=== PATIENT | male | born 1960 | race Caucasian/White ===

== ENCOUNTER → 2016-12-13 | Outpatient (CLI) | payer BC ==
[2016-12-13 09:53] LABS: CHLORIDE,CL 106 mmol/L (98-110); SODIUM,NA 140 mmol/L (136-146)
== END | disposition home or self-care (01) ==
LOC: MW.CHOBGYN 08:23
PROVIDERS: ATTEND Nurse Practitioner Family
DX: Z00.00 Encounter for general adult medical examination without abnormal findings (principal); E78.00 Pure hypercholesterolemia, unspecified
CPT/HCPCS: 36415; 80053; 80061; G0103

== ENCOUNTER 2017-11-01 12:14 | Emergency (ER) | payer BC ==
--- NOTE | 2017-11-01 12:20 | EDM.PDOC ---
ED HPI GENERAL MEDICAL PROBLEM - General Chief Complaint: General Stated Complaint: CONGESTED Time Seen by Provider: 11/01/17 12:19 Source of Information: Reports: Patient - History of Present Illness INITIAL COMMENTS - FREE TEXT/NARRATIVE: HISTORY AND PHYSICAL: History of present illness: [Patient presents with cough and wheeze after grinding on a manifold, he did have a ventilated shop however the rust plume that ensued caused him to cough he became wheezy and short of breath throughout the night he is in no distress no fever nausea vomiting chills sweats no chest pain headache dizziness or palpitation no bowel or urine symptoms ] Review of systems: As per history of present illness and below otherwise all systems reviewed and negative. Past medical history: As per history of present illness and as reviewed below otherwise noncontributory. Surgical history: As per history of present illness and as reviewed below otherwise noncontributory. Social history: No reported history of drug or alcohol abuse. Family history: As per history of present illness and as reviewed below otherwise noncontributory. Physical exam: HEENT: Atraumatic, normocephalic, pupils reactive, negative for conjunctival pallor or scleral icterus, mucous membranes moist, throat clear, neck supple, nontender, trachea midline. Lungs: Clear to auscultation, breath sounds equal bilaterally, chest nontender. Post DuoNeb prior he did have an expiratory wheeze on the left Heart: S1S2, regular, negative for clicks, rubs, or JVD. Abdomen: Soft, nondistended, nontender. Negative for masses or hepatosplenomegaly. Negative for costovertebral tenderness. Pelvis: Stable nontender. Genitourinary: Deferred. Rectal: Deferred. Extremities: Atraumatic, negative for cords or calf pain. Neurovascular unremarkable. Neuro: Awake, alert, oriented. Cranial nerves II through XII unremarkable. Cerebellum unremarkable. Motor and sensory unremarkable throughout. Exam nonfocal. Diagnostics: [Strep/fluid Chest 2 views ] Therapeutics: [DuoNeb now and prescription patient has compressor at home Solu-Medrol 125 mg IM zpak HFA Medrol Dosepak ] Impression: [Pneumonitis/bronchitis] Definitive disposition and diagnosis as appropriate pending reevaluation and review of above. Chest Pain Score (Numeric/FACES): 8 - Related Data Allergies Allergy/AdvReac Type Severity Reaction Status Date / Time Penicillins Allergy Unknown Cannot Verified 01/29/15 16:54 Remember Home Meds: Home Meds Aspirin [Halfprin] 81 mg PO DAILY 01/29/15 [History] Atenolol 1 tab PO BRK 01/29/15 [History] atorvaSTATin Calcium [Atorvastatin Calcium] 10 mg PO DAILY 01/29/15 [History] Social & Family History - Tobacco Use Smoking Status *Q: Former Smoker (quit 10 years ago) - Alcohol Use Days Per Week of Alcohol Use: 7 Number of Drinks Per Day: 7 Total Drinks Per Week: 49 - Recreational Drug Use Recreational Drug Use: No Drug Use in Last 12 Months: No ED ROS GENERAL - Review of Systems Review Of Systems: ROS reveals no pertinent complaints other than HPI. ED EXAM, GENERAL - Physical Exam Exam: See Below Course - Vital Signs Last Recorded V/S: Last Vital Signs Temp 98.7 F 11/01/17 12:25 Pulse 69 11/01/17 12:25 Resp 16 11/01/17 12:25 BP 142/75 H 11/01/17 12:25 Pulse Ox 95 11/01/17 12:25 - Orders/Labs/Meds Orders: Active Orders 24 hr Category Date Time Status RT Aerosol Therapy [RC] ASDIRECTED Care 11/01/17 13:06 Active Chest 2V [CR] Stat Exams 11/01/17 12:40 Taken CULTURE STREP A CONFIRMATION [RM] Stat Lab 11/01/17 12:33 Results STREP SCRN A RAPID W CULT CONF [RM] Stat Lab 11/01/17 12:33 Results Meds: Medications Discontinued Medications Generic Name Dose Route Start Last Admin Trade Name Troy PRN Reason Stop Dose Admin Albuterol/Ipratropium 3 ml 11/01/17 13:06 Duoneb 3.0-0.5 Mg/3 Ml NEB 11/01/17 13:07 ONETIME ONE Methylprednisolone Sodium Succinate 125 mg 11/01/17 13:06 Solu-Medrol IM 11/01/17 13:07 ONETIME ONE Departure - Departure Time of Disposition: 13:12 Disposition: Home, Self-Care 01 Condition: Good Clinical Impression: Bronchitis, Pneumonitis - Discharge Information Referrals: Mayi Rinaldi HOUSEMAN [Primary Care Provider] - Forms: ED Department Discharge Additional Instructions: The following information is given to patients seen in the emergency department who are being discharged to home. This information is to outline your options for follow-up care. We provide all patients seen in our emergency department with a follow-up referral. The need for follow-up, as well as the timing and circumstances, are variable depending upon the specifics of your emergency department visit. If you don't have a primary care physician on staff, we will provide you with a referral. We always advise you to contact your personal physician following an emergency department visit to inform them of the circumstance of the visit and for follow-up with them and/or the need for any referrals to a consulting specialist. The emergency department will also refer you to a specialist when appropriate. This referral assures that you have the opportunity for follow-up care with a specialist. All of these measure are taken in an effort to provide you with optimal care, which includes your follow-up. Under all circumstances we always encourage you to contact your private physician who remains a resource for coordinating your care. When calling for follow-up care, please make the office aware that this follow-up is from your recent emergency room visit. If for any reason you are refused follow-up, please contact the [facility] emergency department at and asked to speak to the emergency department charge nurse. - My Orders Last 24 Hours: My Active Orders 11/01/17 12:33 CULTURE STREP A CONFIRMATION [RM] Stat STREP SCRN A RAPID W CULT CONF [RM] Stat 11/01/17 12:40 Chest 2V [CR] Stat 11/01/17 13:06 RT Aerosol Therapy [RC] ASDIRECTED - Assessment/Plan Last 24 Hours: My Active Orders 11/01/17 12:33 CULTURE STREP A CONFIRMATION [RM] Stat STREP SCRN A RAPID W CULT CONF [RM] Stat 11/01/17 12:40 Chest 2V [CR] Stat 11/01/17 13:06 RT Aerosol Therapy [RC] ASDIRECTED
[2017-11-01 12:32] VITALS: BP 142/75
[2017-11-01] MEDS ORDERED: methylPREDNISolone Sodium Succinate 125 MG/2 ML SDV IM ONE (13:06)
[2017-11-01] MEDS ORDERED: Albuterol/Ipratropium 3.0-0.5 MG/3 ML Neb Soln NEB ONE (13:06)
--- NOTE | 2017-11-01 13:13 | CR ---
EXAMINATION: Two-view chest (PA and Lateral views). HISTORY: Shortness of breath. FINDINGS: The trachea is midline. The cardiomediastinal silhouette is within normal limits. No pulmonary infilt rates, effusions or pneumothorax. Mild chronic interstitial prominence. Osseous structures appear unremarkable. IMPRESSION: No acute cardiopulmonary process.
== END 2017-11-01 13:51 | disposition home or self-care (01) ==
LOC: MW.ED 12:14
DX: J18.9 Pneumonia, unspecified organism (principal); J40 Bronchitis, not specified as acute or chronic; Z88.0 Allergy status to penicillin; Z79.82 Long term (current) use of aspirin; Z79.899 Other long term (current) drug therapy; Z87.891 Personal history of nicotine dependence
CPT/HCPCS: 71046; 87081; 87804; 87880; 94640; 96372; 99283; J2930

== ENCOUNTER 2020-08-01 09:50 | Emergency (ER) | payer BC ==
[2020-08-01 10:10] VITALS: BP 155/72; PULSE 52
[2020-08-01] MEDS ORDERED: Diphtheria,Pertussis(Acell),Tetanus Vaccine 0.5 ML Syringe IM ONE (10:16)
[2020-08-01] MEDS ORDERED: Ciprofloxacin 500 MG Tab PO ONE (10:23)
--- NOTE | 2020-08-01 10:32 | EDM.PDOC ---
ED HPI GENERAL MEDICAL PROBLEM - General Chief Complaint: Lower Extremity Injury/Pain Stated Complaint: STEP ON NAIL Time Seen by Provider: 08/01/20 09:54 - History of Present Illness INITIAL COMMENTS - FREE TEXT/NARRATIVE: CHIEF COMPLAINT(S): Left foot injury HISTORY OF PRESENT ILLNESS: This is a 60-year-old male without any significant past medical history who presents to the emergency department the left foot in [facility]. The patient states that approximately 2 days ago he was cleaning out the chicken coop when he accidentally stepped on a piece of wood that had a screw exposed. He states that the screw went through his crocs and stabbed his left foot. He states that immediately after labs his was a nurse cleaned his left foot with peroxide and they have been putting Neosporin cream on it. He states that he also has been soaking it with Epson salt. He states that he is experiencing pain on the bottom part of his left foot in the middle where the screw was and some pain in his middle toe. He states that he is able to ambulate and bear weight. He denies any redness or purulent drainage. He states that the pain is only when he steps on it. He states that it has significantly improved since 2 days ago but he decided to come to the emergency department because he was concerned that it may get infected. He denies any other injury. REVIEW OF SYSTEMS: Constitutional: Denies fever, chills. Eyes: Denies eye pain Ears, Nose, Mouth, & Throat: Denies earache Cardiovascular: Denies chest pain Respiratory: Denies shortness of breath Gastrointestinal: Denies Nausea, vomiting, diarrhea, hematochezia. Genitourinary: Denies hematuria MSK: Positive for left foot pain and puncture wound Neurological: Denies blurred vision Psychiatric: Denies depression PAST MEDICAL HISTORY: As per history of present illness and as reviewed below otherwise noncontributory. SURGICAL HISTORY: As per history of present illness and as reviewed below otherwise noncontributory. SOCIAL HISTORY: As per history of present illness and as reviewed below otherwise noncontributory. FAMILY HISTORY: As per history of present illness and as reviewed below otherwise noncontributory. EXAMINATION OF ORGAN SYSTEMS/BODY AREAS: Constitutional: Blood pressure was 155/72, heart rate 52, respiratory rate 17 with an oxygen saturation of 97% on room air. Temperature 36.1 General: Overall well-appearing man who is in no acute distress. Psychiatric: Appropriate mood and affect. Eyes: No scleral icterus or conjunctival erythema ENMT: Neck is supple and trachea is midline Cardiovascular: Regular, rate, and rhythm. No gallops, murmurs, or rubs. Bilateral lower extremity pulses distally are intact. Capillary refill less than 2 seconds. Respiratory: Lungs clear to auscultation bilaterally. No wheezes, rales, or rhonchi. Gastrointestinal: Soft, non-tender, non-distended. Normoactive bowel sounds Genitourinary: No suprapubic tenderness Musculoskeletal: The patient is able to bear weight on his left foot with minimal pain. There is a small puncture wound just under the third toe on the Palmar surface of his foot. There is no surrounding erythema or fluctuance. Skin: Puncture wound on the palmar aspect of the left foot Neurological: Alert, GCS 15 sensation is intact distally MEDICAL DECISION MAKING AND COURSE IN THE ED WITH INTERPRETATION/REVIEW OF DIAGNOSTIC STUDIES: This is a 60-year-old man without any significant past medical history who presents to the emergency department with a left puncture wound to the palmar aspect of his foot. At this time we will provide the patient with a tetanus booster. Will obtain an x-ray to evaluate for any bony erosion or evidence of foreign body. Given that the screw went through a rubber shoe and although there is no sign of infection we will prophylactically treat with ciprofloxacin for which she will take at home. The radiological images were viewed by myself along with reading the report from the radiologist. Left foot x-ray reveals normal alignment without any fractures. No foreign body noted. There is soft tissue swelling on the plantar aspect of the foot. No erosive or bone changes. I did discuss results with the patient. I discussed with him at this time that he should continue taking Tylenol Motrin for pain relief. He is to return to the emergency department for any new or worsening symptoms. He is to follow-up with his primary care physician for continued management DISPOSITION: The patient was discharged home in stable condition. The patient will follow up with PCP within 1 week CONDITION: Fair PROCEDURES: None FINAL IMPRESSION(S)/DIAGNOSES: 1. Acute left plantar foot puncture wound Sami Meredith M.D. L foot Pain Score (Numeric/FACES): 8 - Related Data Allergies Allergy/AdvReac Type Severity Reaction Status Date / Time Penicillins Allergy Unknown Cannot Verified 08/01/20 10:12 Remember Home Meds: Home Meds Aspirin [Halfprin] 81 mg PO DAILY 01/29/15 [History] atenoloL [Atenolol] 0 mg PO BRK 01/29/15 [History] atorvaSTATin Calcium [Atorvastatin Calcium] 10 mg PO DAILY 01/29/15 [History] Ciprofloxacin [Ciprofloxacin HCl] 500 mg PO BID #14 tab 08/01/20 [Rx] Ibuprofen 400 mg PO Q6HR #28 tablet 08/01/20 [Rx] Past Medical History Cardiovascular History: Reports: High Cholesterol, Hypertension Neurological History: Reports: CVA Social & Family History - Family History Family Medical History: No Pertinent Family History - Caffeine Use Caffeine Use: Reports: Coffee Review of Systems - Review of Systems Review Of Systems: See Below ED EXAM, GENERAL - Physical Exam Exam: See Below Course - Vital Signs Last Recorded V/S: Last Vital Signs Temp 36.1 C 08/01/20 09:54 Pulse 52 L 08/01/20 09:54 Resp 17 08/01/20 09:54 BP 155/72 H 08/01/20 09:54 Pulse Ox 97 08/01/20 09:54 - Orders/Labs/Meds Meds: Medications Discontinued Medications Generic Name Dose Route Start Last Admin Trade Name Troy PRN Reason Stop Dose Admin Ciprofloxacin 500 mg 08/01/20 10:23 08/01/20 10:45 Ciprofloxacin Hcl PO 08/01/20 10:24 500 mg ONETIME ONE Administration Diphtheria/Tetanus/Acell Pertussis 0.5 ml 08/01/20 10:16 08/01/20 10:46 Boostrix IM 08/01/20 10:17 0.5 ml .ONCE ONE Administration Diphtheria/Tetanus/Acell Pertussis Confirm 08/01/20 10:38 08/01/20 10:48 Adacel Administered 08/01/20 10:39 Not Given Dose 0.5 ml .ROUTE .STK-MED ONE Departure - Departure Time of Disposition: 11:05 Disposition: Home, Self-Care 01 Condition: Fair Clinical Impression: Puncture wound of plantar aspect of foot Qualifiers: Encounter type: initial encounter Laterality: left Qualified Code(s): S91.332A - Puncture wound without foreign body, left foot, initial encounter - Discharge Information *PRESCRIPTION DRUG MONITORING PROGRAM REVIEWED*: No *COPY OF PRESCRIPTION DRUG MONITORING REPORT IN PATIENT JANA: No Prescriptions: Ciprofloxacin [Ciprofloxacin HCl] 500 mg PO BID #14 tab Ibuprofen 400 mg PO Q6HR #28 tablet Instructions: Puncture Wound, [id number], Wound Care, Adult Referrals: Baldemar Arciniega MD [Primary Care Provider] - Forms: ED Department Discharge Additional Instructions: The patient is informed of any results of their evaluation and diagnostic workup and all questions are answered. They are given discharge instructions and return precautions. The patient is stable for discharge. The patient states they understand and agree with the plan and that they will return if their symptoms get worse or if they have any new concerns. The following information is given to patients seen in the emergency department who are being discharged to home. This information is to outline your options for follow-up care. We provide all patients seen in our emergency department with a follow-up referral. The need for follow-up, as well as the timing and circumstances, are variable depending upon the specifics of your emergency department visit. If you don't have a primary care physician on staff, we will provide you with a referral. We always advise you to contact your personal physician following an emergency department visit to inform them of the circumstance of the visit and for follow-up with them and/or the need for any referrals to a consulting specialist. The emergency department will also refer you to a specialist when appropriate. This referral assures that you have the opportunity for follow-up care with a specialist. All of these measure are taken in an effort to provide you with optimal care, which includes your follow-up. Under all circumstances we always encourage you to contact your private physician who remains a resource for coordinating your care. When calling for follow-up care, please make the office aware that this follow-up is from your recent emergency room visit. If for any reason you are refused follow-up, please contact the [facility] Emergency Department at and asked to speak to the emergency department charge nurse. You were evaluated on an emergent basis today. Your x-ray was normal. Please continue to use ibuprofen 400 mg every 6 hours as needed for pain. Please use ice for swelling 20 minutes 4 times a day and elevate the affected foot. I did prescribe you ciprofloxacin to be taken twice a day for prevention of infection of your left foot. If you are to have any worsening pain, swelling, redness, or drainage of pus please return to the emergency department. Please follow-up with your primary care physician within 1 week. [facility] - Primary [facility] [address] [place] [id number] [address] [id number] Sepsis Event Note (ED) - Evaluation Sepsis Screening Result: No Definite Risk - Focused Exam Vital Signs: Vital Signs Temp Pulse Resp BP Pulse Ox 08/01/20 09:54 36.1 C 52 L 17 155/72 H 97
[2020-08-01] MEDS ORDERED: Diphtheria,Pertussis(Acell),Tetanus Vaccine 0.5 ML Syringe ONE (10:38)
--- NOTE | 2020-08-01 10:58 | CR ---
Indication: Patient stepped on screw 3 days ago Technique: Three views of the left foot Findings: Normal alignment no fractures are seen. No radiopaque foreign body. There is some soft tissue swelling and increased attenuation which may represent edema along the distal plantar surface of the foot. No underlying erosive change or bony destructive change. Dictated by Kayy Nelson MD @ Aug 01 2020 10:54AM Signed by Dr. Kayy Nelson @ Aug 01 2020 10:56AM
== END 2020-08-01 11:58 | disposition home or self-care (01) ==
LOC: MW.ED 09:50
DX: S91.332A Puncture wound without foreign body, left foot, initial encounter (principal); E78.00 Pure hypercholesterolemia, unspecified; I10 Essential (primary) hypertension; Z79.82 Long term (current) use of aspirin; Z79.899 Other long term (current) drug therapy; Z86.73 Personal history of transient ischemic attack (TIA), and cerebral infarction without residual deficits; Z88.0 Allergy status to penicillin; Z23 Encounter for immunization; W26.8XXA Contact with other sharp object(s), not elsewhere classified, initial encounter
CPT/HCPCS: 73630; 90471; 99283; A9270

== ENCOUNTER 2022-11-25 23:33 | Emergency (ER) | payer BC ==
[2022-11-26 00:26] LABS: CORONAVIRUS COVID-19 NAA NEGATIVE (NEGATIVE); INFLUENZA A NAA NEGATIVE (NEGATIVE); INFLUENZA B NAA NEGATIVE (NEGATIVE)
[2022-11-26 00:55] VITALS: BP 140/69; PULSE 74
== END 2022-11-26 00:55 | disposition home or self-care (01) ==
LOC: MW.ED 23:33
DX: J40 Bronchitis, not specified as acute or chronic (principal); E78.00 Pure hypercholesterolemia, unspecified; I10 Essential (primary) hypertension; Z88.0 Allergy status to penicillin; Z79.82 Long term (current) use of aspirin; Z79.899 Other long term (current) drug therapy; Z20.822 Contact with and (suspected) exposure to COVID-19
CPT/HCPCS: 0240U; 71045; 99283; 99282